=== PATIENT | female | born 1970 | race Caucasian/White ===

== ENCOUNTER 2018-04-25 10:03 | Emergency (ER) | payer MEDICAID, OTHER ==
[~2018-04-25] VITALS: Ht 152.4 cm; Wt 50.0 kg
[~2018-04-25 10:03] MED LIST: CHLO25CA10 PO
[2018-04-25 10:05] VITALS: BP 143/77
[2018-04-25] MEDS ORDERED: HYDROcodone/acetaminophen 10/325mg tab PO ONE (10:15)
[2018-04-25] MEDS ORDERED: HYDR-3965 PO (10:54)
== END 2018-04-25 11:27 | disposition home or self-care (01) ==
LOC: ER 10:04
DX: S30.0XXA Contusion of lower back and pelvis, initial encounter (principal); I10 Essential (primary) hypertension; F17.200 Nicotine dependence, unspecified, uncomplicated; F10.20 Alcohol dependence, uncomplicated; F12.90 Cannabis use, unspecified, uncomplicated; Z98.51 Tubal ligation status; Z79.899 Other long term (current) drug therapy; W18.39XA Other fall on same level, initial encounter; Y93.89 Activity, other specified; Y92.89 Other specified places as the place of occurrence of the external cause; Y99.8 Other external cause status; Y90.9 Presence of alcohol in blood, level not specified
CPT/HCPCS: 72170; 99284

== ENCOUNTER 2019-04-25 18:33 | Emergency (ER) | payer MEDICAID ==
[~2019-04-25] VITALS: Ht 152.4 cm; Wt 45.5 kg
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
[2019-04-25 21:46] VITALS: BP 117/81
[2019-04-25] MEDS ORDERED: benzonatate 100mg capsule PO ONE (21:50)
[2019-04-25] MEDS ORDERED: AZIT-63 PO (21:50)
[2019-04-25] MEDS ORDERED: azithromycin 250mg tablet PO ONE (21:50)
== END 2019-04-25 22:16 | disposition home or self-care (01) ==
LOC: ER 18:34
DX: S00.83XA Contusion of other part of head, initial encounter (principal); S20.211A Contusion of right front wall of thorax, initial encounter; J40 Bronchitis, not specified as acute or chronic; I10 Essential (primary) hypertension; F17.210 Nicotine dependence, cigarettes, uncomplicated; F12.90 Cannabis use, unspecified, uncomplicated; Z79.82 Long term (current) use of aspirin; Z79.899 Other long term (current) drug therapy; Z87.19 Personal history of other diseases of the digestive system; Z98.51 Tubal ligation status; Z59.0 Homelessness; Y08.89XA Assault by other specified means, initial encounter; Y93.89 Activity, other specified; Y92.89 Other specified places as the place of occurrence of the external cause; Y99.8 Other external cause status
CPT/HCPCS: 70450; 70486; 99284

== ENCOUNTER 2020-04-13 13:20 | Emergency (ER) | payer MEDICAID ==
[~2020-04-13] VITALS: Ht 152.4 cm; Wt 50.9 kg
[2020-04-13 13:56] VITALS: BP 142/86
[2020-04-13] MEDS ORDERED: ERYT1OIN6 EACHEYE (15:27)
[2020-04-13] MEDS ORDERED: PEG15DRO5 EACHEYE (15:27)
== END 2020-04-13 15:45 | disposition home or self-care (01) ==
LOC: ER 13:21
DX: H10.9 Unspecified conjunctivitis (principal); H53.149 Visual discomfort, unspecified; I10 Essential (primary) hypertension; F12.90 Cannabis use, unspecified, uncomplicated; Z72.89 Other problems related to lifestyle; Z98.51 Tubal ligation status; Z59.0 Homelessness; Z79.899 Other long term (current) drug therapy
CPT/HCPCS: 99283

== ENCOUNTER 2020-05-02 12:33 | Emergency (ER) | payer MEDICAID ==
[~2020-05-02] VITALS: Ht 152.4 cm; Wt 49.0 kg
[~2020-05-02 12:33] MED LIST changes: +PEG15DRO5 EACHEYE
[2020-05-02 13:14] LABS: BASOPHILS # (AUTO) 0.1 X10'3 (0-0.2); BASOPHILS % (AUTO) 0.4 % (0-1); EOSINOPHILS % (AUTO) 0.3 % (0-6); HEMATOCRIT 25.9 % (35.0-45.0); HEMOGLOBIN 8.6 g/dl (12.0-16.0); LYMPHOCYTES # (AUTO) 1.9 X10'3 (1.1-4.8); LYMPHOCYTES % (AUTO) 11.8 % (21-51); MEAN CORPUSCULAR HEMOGLOBIN 36.8 PG (27.0-31.0); MEAN CORPUSCULAR HGB CONC 33.3 g/dL (33.0-36.5); MEAN CORPUSCULAR VOLUME 110.7 FL (78-98); MEAN PLATELET VOLUME 8.4 FL (7.4-10.4); MONOCYTES # (AUTO) 1.1 X10'3 (0-0.9); MONOCYTES % (AUTO) 6.9 % (2-12); NEUTROPHILS # (AUTO) 13.2 X10'3 (1.8-7.7); NEUTROPHILS % (AUTO) 80.6 % (42-75); PLATELET COUNT 209 X10'3 (140-440); RED BLOOD COUNT 2.33 X10'6 (4.20-5.60); RED CELL DISTRIBUTION WIDTH 16.4 % (11.5-14.5); WHITE BLOOD COUNT 16.3 X10'3 (4.5-11.0)
[2020-05-02 13:29] LABS: ALANINE AMINOTRANSFERASE 47 U/L (12-78); ALBUMIN 2.2 G/DL (3.4-5.0); ALBUMIN/GLOBULIN RATIO 0.4 (1.1-1.5); ALKALINE PHOSPHATASE 102 IU/L (46-116); AMYLASE 32 U/L (25-115); ANION GAP 12 (8-16); ASPARTATE AMINO TRANSFERASE 139 U/L (10-37); BILIRUBIN,TOTAL 3.4 MG/DL (0.1-1.0); BLOOD UREA NITROGEN 18 MG/DL (7-18); BUN/CREATININE RATIO 17.5 (6.6-38.0); CALCIUM 8.6 MG/DL (8.5-10.1); CHLORIDE 93 MMOL/L (99-107); CREATININE 1.03 MG/DL (0.40-0.90); GLUCOSE 109 MG/DL (70-104); LIPASE 84 U/L (73-393); POTASSIUM 4.6 MMOL/L (3.5-5.1); SODIUM 125 MMOL/L (135-145); TOTAL PROTEIN 7.6 G/DL (6.4-8.2); eGFR 57 ML/MIN
[2020-05-02 13:34] LABS: ANISOCYTOSIS 1+; PLATELET ESTIMATE NORMAL
[2020-05-02 13:35] LABS: POLYCHROMASIA FEW
[2020-05-02] MEDS ORDERED: normal saline 1000ML IV soln IVB ONE (13:45)
[2020-05-02 13:46] LABS: CLARITY,URINE Cloudy (Clear); COLOR,URINE ORANGE (Yellow); UA COLLECTION TYPE CLN CATCH MIDSTREAM
[2020-05-02 13:48] LABS: URINE HCG NEGATIVE (NEG)
[2020-05-02 13:53] LABS: SQUAMOUS EPITHELIAL CELL,UR MANY /LPF (FEW)
[2020-05-02 13:54] LABS: BACTERIA,URINE 4+ /HPF (Neg); TRANSITIONAL EPI CELLS,URINE FEW /HPF
[2020-05-02 13:55] LABS: RBC,URINE 0-2 /HPF (0-2); WBC,URINE 20-30 /HPF (0-4)
[2020-05-02 14:15] VITALS: BP 128/71
[2020-05-02] MEDS ORDERED: iohexol 300mg/ml 100ml inj. ONE (14:15)
[2020-05-02 15:03] VITALS: BP 129/84
[2020-05-02 15:12] VITALS: BP 123/61
--- NOTE | 2020-05-02 15:21 | NUR ---
PARACENTISIS COMPLETE 2300 TAKEN OFF, LABS SENT
[2020-05-02 16:06] LABS: GLUCOSE,BODY FLUID 96 MG/DL; LDH,BODY FLUID 50 U/L; TOTAL PROTEIN,BODY FLUID 2.6 G/DL
[2020-05-02 16:36] LABS: BASOPHILS,BODY FLUID 1 %; LYMPHOCYTES,BODY FLUID 50 %; MONOCYTES,BODY FLUID 24 %; NEUTROPHILS,BODY FLUID 25 %
[2020-05-02 16:37] LABS: BFAPPEAR HAZY; BFCOLOR YELLOW
[2020-05-02 16:38] LABS: BF MESOTHELIAL CELLS FEW; BF RBC COUNT 1260 /CU MM; BF WBC COUNT 110 /CU MM (0-1000); BFVOLUME 30 ML
== END 2020-05-02 15:43 | disposition home or self-care (01) ==
LOC: ER 12:34
DX: K70.31 Alcoholic cirrhosis of liver with ascites (principal); F10.920 Alcohol use, unspecified with intoxication, uncomplicated; I10 Essential (primary) hypertension; F17.200 Nicotine dependence, unspecified, uncomplicated; F12.90 Cannabis use, unspecified, uncomplicated; Z98.51 Tubal ligation status; Z59.0 Homelessness; Z79.899 Other long term (current) drug therapy; Y90.9 Presence of alcohol in blood, level not specified
CPT/HCPCS: 36415; 49083; 74177; 76705; 80053; 81001; 81025; 82150; 82945; 83615; 83690; 84157; 85025; 85610; 87070; 89051; 96360; 99285; J7030; Q9967; 85008

== ENCOUNTER 2020-05-10 08:54 | Emergency (ER) | payer MEDICAID ==
[~2020-05-10] VITALS: Ht 152.4 cm; Wt 118.0 kg
[2020-05-10 11:59] LABS: COLOR,URINE ORANGE (Yellow); UA COLLECTION TYPE STRAIGHT CATH
[2020-05-10 12:01] LABS: CLARITY,URINE CLOUDY (Clear)
[2020-05-10 12:12] LABS: BACTERIA,URINE 4+ /HPF (Neg); SQUAMOUS EPITHELIAL CELL,UR MANY /LPF (FEW)
[2020-05-10 12:14] LABS: WBC CLUMPS,URINE MANY /HPF (NEGATIVE); WBC,URINE 30-50 /HPF (0-4)
[2020-05-10 12:16] LABS: TRANSITIONAL EPI CELLS,URINE FEW /HPF
[2020-05-10] MEDS ORDERED: CEPH-571 PO (12:29)
[2020-05-10 12:44] VITALS: BP 110/71
== END 2020-05-10 12:47 | disposition home or self-care (01) ==
LOC: ER 08:55
DX: J06.9 Acute upper respiratory infection, unspecified (principal); N39.0 Urinary tract infection, site not specified; I10 Essential (primary) hypertension; F12.10 Cannabis abuse, uncomplicated; Z87.19 Personal history of other diseases of the digestive system; Z59.0 Homelessness; Z98.51 Tubal ligation status; Z79.899 Other long term (current) drug therapy; Z20.828 Contact with and (suspected) exposure to other viral communicable diseases
CPT/HCPCS: 36415; 81001; 87077; 87088; 87186; 87635; 99284

== ENCOUNTER 2020-05-27 13:49 | Inpatient (IN) | payer MEDICAID ==
[~2020-05-27] VITALS: Ht 152.4 cm; Wt 54.5 kg
[~2020-05-27 13:49] MED LIST changes: +CEPH-571 PO
[2020-05-27] MEDS ORDERED: normal saline 1000ML IV soln IVB ONE (15:15)
[2020-05-27] MEDS ORDERED: ondansetron/PF 4mg/2ml inj IV ONE (15:15)
[2020-05-27] MEDS ORDERED: pantoprazole 40 MG vial IV ONE (15:15)
[2020-05-27 15:48] LABS: BASOPHILS # (AUTO) 0.2 X10'3 (0-0.2); EOSINOPHILS # (AUTO) 0.1 X10'3 (0-0.9); EOSINOPHILS % (AUTO) 0.6 % (0-6); LYMPHOCYTES # (AUTO) 2.2 X10'3 (1.1-4.8); MEAN CORPUSCULAR HEMOGLOBIN 35.8 PG (27.0-31.0); MEAN CORPUSCULAR HGB CONC 33.7 g/dL (33.0-36.5); MEAN CORPUSCULAR VOLUME 106.4 FL (78-98); MEAN PLATELET VOLUME 7.5 FL (7.4-10.4); MONOCYTES # (AUTO) 0.4 X10'3 (0-0.9); MONOCYTES % (AUTO) 2.8 % (2-12); NEUTROPHILS # (AUTO) 12.9 X10'3 (1.8-7.7); NEUTROPHILS % (AUTO) 81.6 % (42-75); PLATELET COUNT 202 X10'3 (140-440); RED BLOOD COUNT 1.78 X10'6 (4.20-5.60); WHITE BLOOD COUNT 15.8 X10'3 (4.5-11.0)
[2020-05-27 15:50] LABS: HEMATOCRIT 18.9 % (35.0-45.0); HEMOGLOBIN 6.4 g/dl (12.0-16.0)
[2020-05-27 16:00] LABS: ALANINE AMINOTRANSFERASE 21 U/L (12-78); ALBUMIN 2.1 G/DL (3.4-5.0); ALBUMIN/GLOBULIN RATIO 0.4 (1.1-1.5); ALKALINE PHOSPHATASE 110 IU/L (46-116); ANION GAP 17 (8-16); ASPARTATE AMINO TRANSFERASE 74 U/L (10-37); BLOOD UREA NITROGEN 43 MG/DL (7-18); BUN/CREATININE RATIO 24.6 (6.6-38.0); CALCIUM 8.7 MG/DL (8.5-10.1); CHLORIDE 101 MMOL/L (99-107); CREATININE 1.75 MG/DL (0.40-0.90); ETHANOL < 0.010 GM/DL (0.0-0.010); GLUCOSE 111 MG/DL (70-104); LIPASE 82 U/L (73-393); POTASSIUM 4.3 MMOL/L (3.5-5.1); SODIUM 136 MMOL/L (135-145); TOTAL CARBON DIOXIDE 18.1 MMOL/L (24-32); eGFR 31 ML/MIN
[2020-05-27 16:08] LABS: CLARITY,URINE CLOUDY (Clear); COLOR,URINE AMBER (Yellow); GLUCOSE, URINE NEGATIVE (Neg); KETONES,URINE TRACE mg/dl (Neg); LEUKOCYTE ESTERASE ,URINE SMALL (Neg); NITRITES, URINE NEGATIVE (Neg); OCCULT BLOOD,URINE SMALL (Neg); PH,URINE 5.5 (4.8-8.0); PROTEIN,URINE NEGATIVE (Neg)
[2020-05-27 16:09] LABS: ANISOCYTOSIS 2+; PLATELET ESTIMATE NORMAL
[2020-05-27 16:10] LABS: POIKILOCYTOSIS FEW; POLYCHROMASIA FEW; TARGET CELLS FEW
[2020-05-27 16:11] LABS: UA COLLECTION TYPE CLN CATCH MIDSTREAM
[2020-05-27 16:14] LABS: URINE AMPHETAMINE SCREEN NEGATIVE (Neg); URINE BARBITUATE SCREEN NEGATIVE (Neg); URINE BENZODIAZEPINES SCREEN NEGATIVE (Neg); URINE CANNABINOID SCREEN POSITIVE (Neg); URINE COCAINE SCREEN NEGATIVE (Neg); URINE METHADONE SCREEN NEGATIVE (Neg); URINE OPIATE SCREEN NEGATIVE (Neg); URINE PHENCYCLIDINE SCREEN NEGATIVE (Neg)
--- NOTE | 2020-05-27 16:15 | NUR ---
Dr. Dexter at bedside to do rectal exam, this RN as witness, pt tolerated well. Guaiac negative
[2020-05-27 16:21] LABS: SQUAMOUS EPITHELIAL CELL,UR MODERATE /LPF (FEW)
[2020-05-27 16:25] LABS: BACTERIA,URINE TNTC /HPF (Neg)
[2020-05-27 16:30] LABS: TRICHOMONAS,URINE FEW /HPF (NEGATIVE)
[2020-05-27] MEDS ORDERED: CefTRIAXone/D5W-Rocephin 1gm 50 ML IV ONE (16:40)
[2020-05-27] MEDS ORDERED: NO HOME MEDS (16:55)
[2020-05-27] MEDS ORDERED: octreotide 100mcg/1 ml ampule IV ONE (17:00)
[2020-05-27] MEDS ORDERED: pantoprazole 40MG/NS 100ML BAG 100 ML IV ONE (17:00)
[2020-05-27] MEDS ORDERED: morphine 2 MG/ML inj. syringe IV PRN ×2 (17:15)
[2020-05-27] MEDS ORDERED: magnesium hydroxide 30ml (MOM) UD suspension PO PRN (17:15)
[2020-05-27] MEDS ORDERED: HYDROcodone/acetaminophen 10/325mg tab PO PRN (17:15)
[2020-05-27] MEDS ORDERED: ondansetron/PF 4mg/2ml inj IV PRN (17:15)
[2020-05-27] MEDS ORDERED: mag hydrox/Alum hydrox/simeth 30ml oral suspension PO PRN (17:15)
[2020-05-27] MEDS ORDERED: HYDROcodone/acetaminophen 5mg/325mg tablet PO PRN (17:15)
[2020-05-27] MEDS ORDERED: acetaminophen 325mg tablet PO PRN ×2 (17:15)
[2020-05-27 18:46] VITALS: BP 106/68
[2020-05-27 19:10] VITALS: BP 107/71
[2020-05-27] MEDS ORDERED: octreotide inj. 500 MCG in normal saline 100ml IV soln 100 ML IV SCH (19:45)
[2020-05-27] MEDS ORDERED: OCTREOTIDE IV SCH (19:55)
[2020-05-27] MEDS ORDERED: NORMAL SALINE IV SCH (19:55)
[2020-05-27 20:05] VITALS: BP 108/72
[2020-05-27] MEDS: OCTREOTIDE IV SCH (20:52)
[2020-05-27] MEDS: NORMAL SALINE IV SCH (20:52)
[2020-05-27 21:15] VITALS: BP 124/81
[2020-05-27 21:36] VITALS: BP 120/77
[2020-05-27 22:36] VITALS: BP 124/80
[2020-05-28] VITALS (7 sets, daily range): BP systolic 108–152; BP diastolic 42–88
[2020-05-28 04:33] LABS: BASOPHILS # (AUTO) 0.2 X10'3 (0-0.2); BASOPHILS % (AUTO) 1.3 % (0-1); EOSINOPHILS # (AUTO) 0.1 X10'3 (0-0.9); EOSINOPHILS % (AUTO) 0.6 % (0-6); HEMATOCRIT 26.6 % (35.0-45.0); HEMOGLOBIN 9.2 g/dl (12.0-16.0); LYMPHOCYTES % (AUTO) 15.3 % (21-51); MEAN CORPUSCULAR HEMOGLOBIN 34.2 PG (27.0-31.0); MEAN CORPUSCULAR HGB CONC 34.6 g/dL (33.0-36.5); MEAN CORPUSCULAR VOLUME 98.9 FL (78-98); MEAN PLATELET VOLUME 7.5 FL (7.4-10.4); MONOCYTES # (AUTO) 0.4 X10'3 (0-0.9); MONOCYTES % (AUTO) 2.9 % (2-12); NEUTROPHILS # (AUTO) 10.6 X10'3 (1.8-7.7); NEUTROPHILS % (AUTO) 79.9 % (42-75); PLATELET COUNT 168 X10'3 (140-440); RED BLOOD COUNT 2.69 X10'6 (4.20-5.60); RED CELL DISTRIBUTION WIDTH 19.7 % (11.5-14.5); WHITE BLOOD COUNT 13.3 X10'3 (4.5-11.0)
[2020-05-28 04:42] LABS: ALANINE AMINOTRANSFERASE 16 U/L (12-78); ALBUMIN 1.8 G/DL (3.4-5.0); ALKALINE PHOSPHATASE 96 IU/L (46-116); ANION GAP 13 (8-16); ASPARTATE AMINO TRANSFERASE 66 U/L (10-37); BILIRUBIN,TOTAL 7.3 MG/DL (0.1-1.0); BLOOD UREA NITROGEN 45 MG/DL (7-18); BUN/CREATININE RATIO 27.1 (6.6-38.0); CALCIUM 8.4 MG/DL (8.5-10.1); CHLORIDE 106 MMOL/L (99-107); CREATININE 1.66 MG/DL (0.40-0.90); GLUCOSE 130 MG/DL (70-104); SODIUM 137 MMOL/L (135-145); TOTAL CARBON DIOXIDE 18.3 MMOL/L (24-32); eGFR 33 ML/MIN
[2020-05-28 04:43] LABS: ALBUMIN/GLOBULIN RATIO 0.3 (1.1-1.5); POTASSIUM 4.2 MMOL/L (3.5-5.1)
[2020-05-28 06:12] LABS: OCCULT BLOOD STOOL NEGATIVE (Neg)
[2020-05-28] MEDS ORDERED: CefTRIAXone/D5W-Rocephin 1gm 50 ML IV SCH ×2 (08:00→16:00)
--- NOTE | 2020-05-28 08:57 | NUR ---
PT TO GI LAB.
[2020-05-28] MEDS ORDERED: MIDAZolam 5mg/5ml vial ONE (09:49)
[2020-05-28] MEDS ORDERED: LIDOcaine Viscous 15ml cup ONE (09:49)
[2020-05-28] MEDS ORDERED: fentaNYL/PF 50MCG/1 ML 2ML syringe ONE (09:49)
[2020-05-28] MEDS ORDERED: epiNEPHrine 0.1mg/ml 10ml syringe ONE (09:52)
--- NOTE | 2020-05-28 09:59 | NUR ---
SON, FROM [place], CALLED FOR CONDITION REPORT AND INFORMED OF PATIENT'S INPATIENT ADMISSION STATUS, POST GI LAB. SON STATES THAT HE HOPES TO SPEAK WITH ACCESS CONSULTANT OR PIT FURNACE OPERATOR FOR DISCHARGE PLANNING ASSISTANCE FOR HIS MOTHER.
[2020-05-28 10:57] LABS: ANISOCYTOSIS 2+; PLATELET ESTIMATE NORMAL; POLYCHROMASIA FEW
[2020-05-28 10:58] LABS: BURR CELLS FEW; SCHISTOCYTES FEW; TARGET CELLS FEW; TEAR DROP CELLS 1+
--- NOTE | 2020-05-28 11:09 | NUR ---
patient just got back from gi lab.
--- NOTE | 2020-05-28 13:31 | NUR ---
Spoke with Dr. White about possibly DC pt home from ER. States he will come to ER to assess pt.
--- NOTE | 2020-05-28 14:39 | NUR ---
Note kamran in ED - 05/28/20 at 1440 by SEAN Pt eating sandwhich and drinking juice in [facility]; VSS.
--- NOTE | 2020-05-28 14:45 | NUR ---
Dr. White at bedside to evaluate pt. States he still wants to admit pt overnight; verbal order given to admit pt to med/surg. House sup made aware of change.
--- NOTE | 2020-05-28 15:24 | NUR ---
Pt ambulated to the [facility] and back to bed.
--- NOTE | 2020-05-28 15:40 | NUR ---
Food tray delivered; pt sitting up in [place] eating.
[2020-05-28] MEDS: furosemide 40mg tablet PO SCH (17:45)
--- NOTE | 2020-05-28 18:20 | NUR ---
Patient in room [facility]. I have received report from DESTINEY Fofana and had the opportunity to ask questions and assume patient care.
--- NOTE | 2020-05-28 18:42 | NUR ---
Problems reprioritized. Patient report given, questions answered & plan of care reviewed with DESTINEY Hall.
[2020-05-28] MEDS: lactobacillus rhamnosus 10,000 MMU CELLS/CAPSULE PO SCH (21:50)
[2020-05-29 00:15] VITALS: BP_SYST 129; BP_SYST 132; BP_SYST 134; BP_SYST 135; BP_DIAS 63; BP_DIAS 81; BP_DIAS 85
[2020-05-29] MEDS: NORMAL SALINE IV SCH (03:28)
[2020-05-29] MEDS: OCTREOTIDE IV SCH (03:28)
[2020-05-29 06:34] LABS: BASOPHILS # (AUTO) 0.2 X10'3 (0-0.2); BASOPHILS % (AUTO) 1.1 % (0-1); EOSINOPHILS # (AUTO) 0.1 X10'3 (0-0.9); HEMATOCRIT 27.3 % (35.0-45.0); HEMOGLOBIN 9.2 g/dl (12.0-16.0); LYMPHOCYTES # (AUTO) 2.2 X10'3 (1.1-4.8); LYMPHOCYTES % (AUTO) 14.9 % (21-51); MEAN CORPUSCULAR HEMOGLOBIN 33.7 PG (27.0-31.0); MEAN CORPUSCULAR HGB CONC 33.9 g/dL (33.0-36.5); MEAN CORPUSCULAR VOLUME 99.5 FL (78-98); MEAN PLATELET VOLUME 7.4 FL (7.4-10.4); MONOCYTES # (AUTO) 0.6 X10'3 (0-0.9); MONOCYTES % (AUTO) 3.9 % (2-12); NEUTROPHILS # (AUTO) 11.7 X10'3 (1.8-7.7); NEUTROPHILS % (AUTO) 79.1 % (42-75); PLATELET COUNT 147 X10'3 (140-440); RED BLOOD COUNT 2.74 X10'6 (4.20-5.60); RED CELL DISTRIBUTION WIDTH 19.9 % (11.5-14.5); WHITE BLOOD COUNT 14.8 X10'3 (4.5-11.0)
--- NOTE | 2020-05-29 06:42 | NUR ---
Problems reprioritized. Patient report given, questions answered & plan of care reviewed with DESTINEY Tamez.
--- NOTE | 2020-05-29 06:52 | NUR ---
Patient in room [facility]. I have received report from DESTINEY Hall and had the opportunity to ask questions and assume patient care.
[2020-05-29 07:01] LABS: ALANINE AMINOTRANSFERASE 16 U/L (12-78); ALBUMIN 1.9 G/DL (3.4-5.0); ALBUMIN/GLOBULIN RATIO 0.4 (1.1-1.5); ALKALINE PHOSPHATASE 89 IU/L (46-116); ANION GAP 12 (8-16); ASPARTATE AMINO TRANSFERASE 54 U/L (10-37); BILIRUBIN,TOTAL 3.2 MG/DL (0.1-1.0); BLOOD UREA NITROGEN 51 MG/DL (7-18); BUN/CREATININE RATIO 28.7 (6.6-38.0); CALCIUM 8.1 MG/DL (8.5-10.1); CHLORIDE 105 MMOL/L (99-107); CREATININE 1.78 MG/DL (0.40-0.90); GLUCOSE 123 MG/DL (70-104); POTASSIUM 4.1 MMOL/L (3.5-5.1); SODIUM 135 MMOL/L (135-145); TOTAL CARBON DIOXIDE 17.6 MMOL/L (24-32); TOTAL PROTEIN 7.2 G/DL (6.4-8.2); eGFR 31 ML/MIN
[2020-05-29 07:54] LABS: ANISOCYTOSIS 2+; PLATELET ESTIMATE DECREASED; POLYCHROMASIA 1+
[2020-05-29 08:00] VITALS: BP 132/90
[2020-05-29] MEDS ORDERED: spironolactone 50 MG tablet PO SCH (08:30)
[2020-05-29] MEDS: furosemide 40mg tablet PO SCH (09:10)
[2020-05-29] MEDS: lactobacillus rhamnosus 10,000 MMU CELLS/CAPSULE PO SCH (09:10)
[2020-05-29] MEDS ORDERED: pantoprazole 40mg Tablet.DR PO SCH (09:10)
[2020-05-29 12:00] VITALS: BP 133/86
[2020-05-29] MEDS ORDERED: SULF1TAB49 PO (12:54)
[2020-05-29] MEDS ORDERED: FURO40TA4 PO (12:54)
[2020-05-29] MEDS ORDERED: PANT40TA54 PO (12:54)
[2020-05-29] MEDS ORDERED: SPIR50TA5 PO (13:35)
--- NOTE | 2020-05-29 15:50 | NUR ---
Pt discharged home in stable condition. IV removed x2. discharge and medication instruction given to pt. Pt states she has an RV parked across the street and that her friend will come over to the hospital to pick her up. Pt was escorted to main lobby and left sitting there waiting for her friend.
== END 2020-05-29 15:23 | disposition home or self-care (01) | DRG 280 ==
LOC: ER 13:49 → ED HOLD 17:14 → SUR 3N 05-28 16:13
PROVIDERS: ADMIT Internal Medicine; ATTEND Internal Medicine
PROC: 30233N1 Transfusion of Nonautologous Red Blood Cells into Peripheral Vein, Percutaneous Approach (ICD-10-PCS; 2020-05-27)
PROC: 0DJ08ZZ Inspection of Upper Intestinal Tract, Via Natural or Artificial Opening Endoscopic (ICD-10-PCS; principal; 2020-05-28)
DX: K70.31 Alcoholic cirrhosis of liver with ascites (principal); K72.90 Hepatic failure, unspecified without coma; B96.20 Unspecified Escherichia coli [E. coli] as the cause of diseases classified elsewhere; D50.0 Iron deficiency anemia secondary to blood loss (chronic); K29.71 Gastritis, unspecified, with bleeding; E87.2 Acidosis; E88.09 Other disorders of plasma-protein metabolism, not elsewhere classified; F10.20 Alcohol dependence, uncomplicated; K76.6 Portal hypertension; I85.10 Secondary esophageal varices without bleeding; I12.9 Hypertensive chronic kidney disease with stage 1 through stage 4 chronic kidney disease, or unspecified chronic kidney disease; F17.210 Nicotine dependence, cigarettes, uncomplicated; K31.89 Other diseases of stomach and duodenum; N17.9 Acute kidney failure, unspecified; N18.30 Chronic kidney disease, stage 3 unspecified; N30.01 Acute cystitis with hematuria; Z79.899 Other long term (current) drug therapy; Z98.51 Tubal ligation status; Z59.0 Homelessness
CPT/HCPCS: 36415; 36430; 43235; 76700; 80053; 80305; 80320; 81001; 82140; 82272; 83605; 83690; 83880; 85008; 85025; 85610; 86885; 86900; 86901; 86920; 87077; 87081; 87088; 87186; 96374; 96375; 99152; 99285; A4620; C9113; G0378; J0171; J0696; J2250; J2270; J2354; J2405; J3010; J7030; J7040; P9016